=== PATIENT | female | born 1940 | race Caucasian/White ===

== ENCOUNTER 2022-12-22 15:00 | Outpatient (RCR) | payer MEDICARE, SELFPAY | END 2023-01-07 10:06 | disposition home or self-care (01) | PROVIDERS: PCP Family Medicine; Visit Provider Family Medicine | DX: M54.2 Cervicalgia (principal); Z51.89 Encounter for other specified aftercare | CPT/HCPCS: 97110; 97140; 97161 ==

== ENCOUNTER 2023-11-26 07:15 | Emergency (ER) | payer MEDICARE, SELFPAY ==
[2023-11-26 07:18] VITALS: BP 158/82; PULSE 85; RESP 18; TEMP 36.3; O2SAT 98; BMI 23.8
--- NOTE | 2023-11-26 07:33 | ED.GENADULT ---
HPI - General Adult General Chief complaint: Dental/Oral/Mouth Injury/Pain Stated complaint: Sores in mouth Time Seen by Provider: 11/26/23 07:30 History of Present Illness HPI narrative: [age] year white female presents with some sores in her mouth. She has noticed this over last 24 hours. 's long-term care and she is concerned this might be infectious. She has no difficulty swallowing they are tender at times. She doses 1 on the front of her lip as well. That is been somewhat tender. She has not had cold sores in the past of any significance or herpes zoster. She has had no immune suppressive medications. No chest pain, shortness of breath Related Data Allergies Allergy/AdvReac Type Severity Reaction Status Date / Time No Known Drug Allergies Allergy Verified 11/26/23 07:18 Review of Systems Status of ROS: Reports: 6 or more systems reviewed and unremarkable except as noted in History and below [facility] Social History Smoking Status: Former smoker Do you use any of these nicotine containing products: None Second hand tobacco smoke exposure: No How often do you have a drink containing alcohol: never How often do you have six or more drinks on one occasion: Never AUDIT-C Alcohol total score: 0 Non-prescribed substance use: denies use service: No Exam Narrative: Exam Narrative: Objective: Patient's vital signs show slightly elevated systolic pressure She is alert orient x3 no distress no difficulty swallowing or breathing. She has got an aphthous ulcer on the road for a mouth noted She also has a tiny very tiny blistering lesion on the upper lip in the middle external to the mouth. It is within the vermilion border however. Neck is supple Patient talks in normal in even unlabored sentences. Const: Vital Signs, click to edit/add: Vital Signs - 24 hr 11/26/23 07:18 Temperature 97.3 F L Pulse Rate [Pulse Oximeter] 85 Respiratory Rate 18 Blood Pressure [Le ft Upper Arm] 158/82 H Pulse Oximetry 98 Oxygen Delivery Me thod Room Air Course Vital Signs Vital signs: Initial Vital Signs Temperature 97.3 F L 11/26/23 07:18 Temperature Source Temporal Artery Scan 11/26/23 07:18 Pulse Rate 85 11/26/23 07:18 Pulse Rhythm Regular 11/26/23 07:18 Respiratory Rate 18 11/26/23 07:18 Blood Pressure 158/82 H 11/26/23 07:18 Blood Pressure Mean 107 H 11/26/23 07:18 Blood Pressure Position Sitting 11/26/23 07:18 Pulse Oximetry 98 11/26/23 07:18 Oxygen Delivery Method Room Air 11/26/23 07:18 Vital Signs Temperature 97.3 F L 11/26/23 07:18 Pulse Rate 85 11/26/23 07:18 Respiratory Rate 18 11/26/23 07:18 Blood Pressure 158/82 H 11/26/23 07:18 Pulse Oximetry 98 11/26/23 07:18 Oxygen Delivery Method Room Air 11/26/23 07:18 Temperature 97.3 F L 11/26/23 07:18 Pulse Rate 85 11/26/23 07:18 Respiratory Rate 18 11/26/23 07:18 Blood Pressure 158/82 H 11/26/23 07:18 Pulse Oximetry 98 11/26/23 07:18 Oxygen Delivery Method Room Air 11/26/23 07:18 Medical Decision Making MDM Narrative Medical decision making narrative: 83-year-old female with what appears to be an aphthous ulcer on the refer her mouth at this point would recommend symptomatic care, Tylenol, sucking on ice cube as needed. She also has an external mouth lesion that could certainly could be an early herpes simplex cold sore type lesion but it does not look like that at this time. Given her situation recommend she stay away from the long-term care unit for a day or 2 to see what transpires, if she the external lesion goes away she can return. If it worsens she could try some Blistex or other topical lubricating ointment. She will recheck as needed. Watch for any difficulty breathing or other concern although that is unlikely in this situation. Discharge Plan Discharge Clinical Impression: Aphthous ulcer Patient Disposition: Home, Self-Care Condition: Stable Additional Instructions: Tylenol as needed, may use ice cubes does suck on as needed for the mouth issue, would statin long-term care for the next day or 2 until the tiny blister on the upper lip heels or goes away, may use some Blistex this develops were worsening and like a cold sore type issue. Return as needed. Activity Level: No Restrictions Discharge Diet: Regular Follow Up/Referrals: Lisa Santos DO [Primary Care Provider] - Stand Alone Forms: [facility] Info Instructions
== END 2023-11-26 07:54 | disposition home or self-care (01) ==
LOC: ED 07:42
PROVIDERS: Emergency Provider Family Medicine; PCP Family Medicine
DX: K12.0 Recurrent oral aphthae (principal)
CPT/HCPCS: 99282; 99283

== ENCOUNTER 2023-11-27 06:24 | Emergency (ER) | payer MEDICARE, SELFPAY ==
[2023-11-27 06:28] VITALS: BP 167/84; PULSE 84; RESP 16; TEMP 36.4; O2SAT 96; BMI 23.8
--- NOTE | 2023-11-27 06:40 | ED_ITS ---
HPI - General Adult General Chief complaint: Ear/Nose/Throat Problem Stated complaint: Canker sores in sinus Time Seen by Provider: 11/27/23 06:40 History of Present Illness HPI narrative: yesterday, was told has canker sores. sores are moving from nose to mouth and right eye. Pt is worried it my be shingles. 83-year-old woman presenting to the emergency department with 2 days of an evolving rash. Seen yesterday in this emergency department and suspected to have had canker sores. Since yesterday has developed bump at the tip of her nose and some swelling along the right bridge of her nose. More painful. Does recall years ago shingles in left lower face. No fever. No drainage. No pain in her eye. Related Data Previous Rx's ?Medication ?Instructions ?Recorded Magic Mouthwash 15 ml PO QID PRN #120 mL 11/27/23 (Lidocaine/Benadryl/Maalox) 120 mL suspension valacyclovir 1 gram tablet 1,000 mg PO Q8H 7 days #21 tabs 11/27/23 Allergies Allergy/AdvReac Type Severity Reaction Status Date / Time No Known Drug Allergies Allergy Verified 11/26/23 07:18 Review of Systems Status of ROS: Reports: 6 or more systems reviewed and unremarkable except as noted in History and below PFSH [facility] Social History Smoking Status: Former smoker Do you use any of these nicotine containing products: None Second hand tobacco smoke exposure: No How often do you have a drink containing alcohol: never How often do you have six or more drinks on one occasion: Never AUDIT-C Alcohol total score: 0 Non-prescribed substance use: denies use service: No Exam Narrative: Exam Narrative: Pleasant. NAD. Getting easily. A patch of erythema over the hard and soft palate on oral pharyngeal exam on the right side only. Up to midline. There is centrally a larger whitish patch with some other whitish speckles in the area. Blister like lesion at the tip of the nose and faint erythema and swelling and then some mild erythema and subtle swelling to the right side of the nose and then there might be lesion forming at the lower far outer right eyelid area. She does not demonstrate any photophobia. No erythema/injection of the sclera. No lesions over the ears or external ear canals. Facies are symmetrical Const: Vital Signs, click to edit/add: Vital Signs - 24 hr 11/27/23 06:28 Temperature 97.6 F Pulse Rate [Right Pulse Oximeter] 84 Respiratory Rate 16 Blood Pressure [Ri ght Upper Arm] 167/84 H Pulse Oximetry 96 Oxygen Delivery Me thod Room Air Documenting provider has reviewed patient's vital signs: yes Course Vital Signs Vital signs: Initial Vital Signs Temperature 97.6 F 11/27/23 06:28 Temperature Source Temporal Artery Scan 11/27/23 06:28 Pulse Rate 84 11/27/23 06:28 Pulse Rhythm Regular 11/27/23 06:28 Respiratory Rate 16 11/27/23 06:28 Blood Pressure 167/84 H 11/27/23 06:28 Blood Pressure Mean 111 H 11/27/23 06:28 Blood Pressure Position Sitting 11/27/23 06:28 Pulse Oximetry 96 11/27/23 06:28 Oxygen Delivery Method Room Air 11/27/23 06:28 Vital Signs Temperature 97.6 F 11/27/23 06:28 Pulse Rate 84 11/27/23 06:28 Respiratory Rate 16 11/27/23 06:28 Blood Pressure 167/84 H 11/27/23 06:28 Pulse Oximetry 96 11/27/23 06:28 Oxygen Delivery Method Room Air 11/27/23 06:28 Temperature 97.6 F 11/27/23 06:28 Pulse Rate 84 11/27/23 06:28 Respiratory Rate 16 11/27/23 06:28 Blood Pressure 167/84 H 11/27/23 06:28 Pulse Oximetry 96 11/27/23 06:28 Oxygen Delivery Method Room Air 11/27/23 06:28 Medications Administered Medications: Discontinued Medications Generic Name Dose Route Start Last Admin Trade Name Freq PRN Reason Stop Dose Admin Valacyclovir HCl 1,000 mg 11/27/23 06:59 11/27/23 07:42 Valacyclovir Hcl 500 Mg Tablet PO 11/27/23 07:00 1,000 mg ONCE ONE Administration Medical Decision Making MDM Narrative Medical decision making narrative: This would appear to be herpes zoster eruption. She has not had Shingrix/shingles vaccine. She does recall history of zoster and course chicke npox when young. Involvement of the distal nose would be concerning Fischer sign. I do have concern of evolving herpes zoster ophthalmicus. Do not see evidence of [place]o [place]. Has been already sore in mouth to swallow. I think some Magic mouthwash would be helpful. Will be giving a dose of valacyclovir here in the emergency department. Will need very close monitoring and might need IV treatments. It is it is Tuesday morning. I am requesting that she be seen 1st thing Tuesday in ophthalmology clinic for repeat evaluation/further exam. Does not appear to have ocular involvement today. See patient discharge plan for further discussion Medical Records Medical records reviewed: Yes I reviewed the patient's medical records Discharge Plan Discharge Clinical Impression: Herpes zoster Patient Disposition: Home w/ Parent or Adult Condition: Stable Additional Instructions: You might try cold moist compresses for some symptom relief. Can keep a container of water with wash cloths within in the fridge. Will be prescribing some prednisone as a steroid from [facility]. Can take up to 1000 mg of acetaminophen per dose. This could be combined with up to 600 mg of ibuprofen per dose. Naproxen would be an alternative to ibuprofen. We have discussed medications like [place] as well but per your preference, will defer at this time. Will also send in prescription for Magic mouthwash along with the antiviral valacyclovir. I think it is important for you to be seen by Ophthalmology tomorrow morning. Please contact them 1st thing. I am concerned that you may be developing herpes zoster ophthalmicus. Prescriptions: New Magic Mouthwash (Lidocaine/Benadryl/Maalox) 120 mL suspension 15 ml PO QID PRNQty: 120 1RF Rx Instructions: Lidocaine Viscous 2 % mucosal solution 40 mL; Maalox 200 mg-200 mg-20 mg/5 mL oral suspension 40 mL; Benadryl 12.5 mg/5 mL oral elixir 40 mL; Per 120 mL SWISH AND SPIT. MAY COMPOUND IF FIRST PRODUCT IS NOT AVAILABLE. valacyclovir 1 gram tablet 1,000 mg PO Q8H 7 Days Qty: 21 0RF Follow Up/Referrals: Lisa Santos DO [Primary Care Provider] - Stand Alone [facility]: [facility] Inst[facility]
[2023-11-27] MEDS: VALACYCLOVIR HCL 500 MG TABLET 1000 MG PO (07:42)
== END 2023-11-27 07:47 | disposition home or self-care (01) ==
PROVIDERS: Emergency Provider Family Medicine; PCP Family Medicine
DX: B02.9 Zoster without complications (principal)
CPT/HCPCS: 99283; 99284; A9270

== ENCOUNTER 2025-02-10 13:54 | Emergency (ER) | payer MEDICARE, SELFPAY ==
[2025-02-10 14:26] VITALS: BP 156/83; PULSE 82; RESP 20; TEMP 36.4; O2SAT 96
--- NOTE | 2025-02-10 18:33 | ED.GENADULT ---
HPI - General Adult General Time Seen by Provider: 18:33 Date Seen: 02/10/25 Chief complaint: Extremity Pain/Injury, Lower Stated complaint: left hip pain Time Seen by Provider: 02/10/25 18:29 Source: patient, family and RN notes reviewed Mode of arrival: ambulatory Limitations: no limitations History of Present Illness HPI narrative: This 84-year-old female is presenting to the ER with complaint of left hip pain. There has been no trauma. She states she had a cortisone injection for hip pain 2 weeks ago with the pain is not improved. She notes that she has bad arthritis in her left hip, had a steroid injection it really has not helped. Over a year ago her symptoms started more as low back pain. The Tylenol has not been cutting it for her. She is not sleeping. She feels pain in the hip area with standing up. She has also noted some leg numbness tingling feeling now. She states it is a little better from coming back from the lobby to the bed in the hallway. Of note, patient did have a significant weight due to the volume in the acuity and no bed availability in the ED. she does states that sitting on the more questioned bed has alleviated some of that numbness tingling feeling. She points to the posterolateral buttock and hip area where she is feeling the pain. The pain will go down the back of her leg, does not think it goes below the knee. There is no trauma, no fevers or chills. She baseline has some urinary incontinence but has had 7 pregnancies, is unchanged. She does not feel she has had any loss of bowel or bladder control over baseline. She is noted to have osteoporosis, hypertension per her report. Her medications are reviewed. Related Data Home Medications ?Medication ?Instructions ?Recorded ?Confirmed alendronate 70 mg tablet 70 mg PO 12/16/23 12/16/23 gabapentin 100 mg capsule 100 mg PO 3XD 12/16/23 02/10/25 lisinopril 40 mg tablet 40 mg PO DAILY 12/16/23 02/10/25 diltiazem HCl 120 mg 120 mg PO DAILY 02/10/25 02/10/25 capsule,extended release 24 hr gemfibrozil 600 mg tablet 600 mg PO BID 02/10/25 02/10/25 ibandronate 150 mg tablet 150 mg PO 02/10/25 Allergies Allergy/AdvReac Type Severity Reaction Status Date / Time No Known Drug Allergies Allergy Verified 02/10/25 14:23 Review of Systems Status of ROS: Reports: 6 or more systems reviewed and unremarkable except as noted in History and below [facility] Medical History (Updated 02/10/25 @ 20:23 by Carisa Alcaraz MD) Hypertension ?I10 - Essential (primary) hypertension (ICD-10) Social History Smoking Status: Former smoker Do you use any of these nicotine containing products: None Second hand tobacco smoke exposure: No How often do you have a drink containing alcohol: never How often do you have six or more drinks on one occasion: Never AUDIT-C Alcohol total score: 0 Non-prescribed substance use: denies use service: No Exam Const: Vital Signs, click to edit/add: Vital Signs - 24 hr 02/10/25 14:26 Temperature 97.5 F L Pulse Rate [Pulse Oximeter] 82 Respiratory Rate 20 Blood Pressure [Ri ght Upper Arm] 156/83 H Pulse Oximetry 96 Oxygen Delivery Me thod Room Air This 84-year-old female is alert, interactive, no apparent distress. Sitting up in the bed in the bean in the ER. Lungs are clear, good air entry, no wheezing or crackles, no tachypnea or accessory muscle use. CV regular rate and rhythm, no significant murmur, normal S1-S2. She has some lower midline tenderness along the sacral lumbar junction. She has sciatic notch tenderness on palpation of the left buttock area. She is not tender over either trochanteric area when I palpate. When I do some internal external rotation isolating hip joint, this does give her discomfort on the left. She also has a positive straight leg raise on the left. Sensation by light touch is normal right now. Strength is 5/5 and symmetric. Documenting provider has reviewed patient's vital signs: yes Course Course ED Course: Have reviewed with patient and her family member that she is here with that it can be sometimes very difficult to differentiate between hip pathology verses low back pain. There can be overlap with these. She certainly sounds to have some arthritis in her hip but the fact that she has some ongoing symptoms that were not improved with cortisone injection into the hip and there is numbness tingling makes me think that she also probably has some lumbar degenerative disease with a possible radiculopathy. Pain management is an issue here. She states she was told not to take ibuprofen because of her blood pressure. Reviewed with her and her family member that based on age alone, there certainly can be renal dysfunction and NSAIDs typically are contraindicated as people age. Her Tylenol is not sufficient. She does not think she has taken narcotics since she had her babies. She does not have a history of seizures. We will give her a dose of tramadol 50 mg here and see how she tolerates it. We are going to proceed with some lumbar spine x-rays. Her exam and vitals do not have any concern for any evidence of infection at this time. We will not check blood work at this point but will consider if she should have a fever here or see something clinically that would be worrisome for this. Reevaluation(s) Time of Reevaluation #1: 20:12 Reevaluation #1: Have reviewed x-ray reports with patient. She does have L4 on L5 spondylolisthesis which is mild. I do wonder if she might have an L4-L5 radiculopathy based on her symptoms. She did tolerate the tramadol, feels like pain is better seated. We are going to get her up and walk, it is with walking where she feels the pain the most. This does make me think there could be a component intra-articular hip pathology as well. We will make sure that she is not to lightheaded or symptomatic from the tramadol. We talked about a short course of prednisone just 20 mg daily and sending her home with some tramadol. Her children are planning to take turns staying with her so she has someone at home. Will give her Tramadol and prednisone from [facility]. Vital Signs Vital signs: Initial Vital Signs Temperature 97.5 F L 02/10/25 14: Temperature Source Temporal Artery Scan 02/10/25 14: Pulse Rate 82 02/10/25 14: Respiratory Rate 20 02/10/25 14:26 Blood Pressure 156/83 H 02/10/25 14: Blood Pressure Mean 107 H 02/10/25 14:26 Pulse Oximetry 96 02/10/25 14:26 Oxygen Delivery Method Room Air 02/10/25 14:26 Vital Signs Temperature 97.5 F L 02/10/25 14:26 Pulse Rate 82 02/10/25 14:26 Respiratory Rate 20 02/10/25 14:26 Blood Pressure 156/83 H 02/10/25 14:26 Pulse Oximetry 96 02/10/25 14:26 Oxygen Delivery Method Room Air 02/10/25 14:26 Temperature 97.5 F L 02/10/25 14:26 Pulse Rate 82 02/10/25 14:26 Respiratory Rate 20 02/10/25 14:26 Blood Pressure 156/83 H 02/10/25 14:26 Pulse Oximetry 96 02/10/25 14:26 Oxygen Delivery Method Room Air 02/10/25 14:26 Medications Administered Medications: Generic Name Dose Route Start Last Admin Trade Name Freq PRN Reason Stop Dose Admin Tramadol HCl 50 mg 02/10/25 19:03 02/10/25 19:44 Tramadol Hcl 50 Mg Tablet PO 02/10/25 19:04 50 mg ONCE ONE Administration Medical Decision Making Imaging Data XR lumbar spine: Attestation: I have reviewed the pertinent imaging results. Radiologist's impression: Patient: KISHAN MICHELE Facility:?[facility] Patient ID:?[id number] Site Patient ID:?[id number]. 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 Mild anterolisthesis of L4 on L5. Mild degenerative change of the lumbar spine atherosclerotic vascular calcification. No acute fracture seen. Dictated by Heather Lee MD @ 02/10/2025 7:27:38 PM (Electronic Signature) Discharge Plan Discharge Clinical Impression: Low back pain Qualifiers: Chronicity: unspecified Back pain laterality: left Sciatica presence: with sciatica Sciatica laterality: sciatica of left side Qualified Code(s): M54.42 - Lumbago with sciatica, left side Osteoarthritis of left hip Qualifiers: Osteoarthritis type: unspecified Qualified Code(s): M16.12 - Unilateral primary osteoarthritis, left hip Patient Disposition: Home, Self-Care Condition: Stable Instructions: Osteoarthritis (ED), Lumbar Radiculopathy (ED) Additional Instructions: Need to contact your primary provider in clinic and get a follow-up there as soon as possible, preferably within 1 week. Try the prednisone 20 mg daily for 5 days, take with food. Would recommend taking tomorrow morning to start. Can use tramadol 50 mg 1 every 6 hours as needed for more severe pain. Stay on your baseline Tylenol, can maximize Tylenol to 3 g per day, follow bottle dosing instructions. It is unclear what part of your symptoms may be your hip but I certainly suspect that you might have degenerative changes causing some of this pain coming from the spine. You may need further imaging and specialty consultation to help figure this out, your primary care provider can assist in this. Activity Level: Activity as Tolerated Prescriptions: No Action gabapentin 100 mg capsule 100 mg PO 3XD alendronate 70 mg tablet 70 mg PO lisinopril 40 mg tablet 40 mg PO DAILY gemfibrozil 600 mg tablet 600 mg PO BID diltiazem HCl 120 mg capsule,extended release 24hr 120 mg PO DAILY ibandronate 150 mg tablet 150 mg PO Follow Up/Referrals: Lisa Santos DO [Primary Care Provider, Family Practice] Stand Alone Forms: [employer] Info Instructions
--- NOTE | 2025-02-10 19:02 | CRLHL7_ITS ---
For Patients: As a result of the Century Cures Act, medical imaging exams and procedure reports are released immediately into your electronic medical record. You may view this report before your referring provider. If you have questions, please contact your health care provider. 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 Mild anterolisthesis of L4 on L5. Mild degenerative change of the lumbar spine atherosclerotic vascular calcification. No acute fracture seen. Dictated by Heather Lee MD @ 02/10/2025 7:27:38 PM (Electronically Signed)
--- OUTSIDE RECORDS SUMMARY | 2025-02-10 19:43 | XMS_ITS | Clinical Summary ---
Author Organization [facility] Address [address] [place] [id number] Care Team Providers Care System Specialist Name Role Phone Lisa Santos Primary Care Provider Emir San Unavailable [phone] Allergies Active AllergyReactionsCriticalityNoted DateCommentsHydrochlorothiazide Hyponatremia,Other - Describe In Comment Field04/25/2021 elevated creatinine level Medications MedicationSigDispense QuantityRefillsLast FilledStart DateEnd DateStatus MULTIVITAMIN TAB ctive ASPIRIN 81 MG TAB, DELAYED RELEASE Indications:Unspecified essential hypertension,Mixed wcaxkolyahasqo788/14/2007 Active calcium carbonate-cholecalciferol, 600mg-200 units, (CALCIUM + D) 600 mg(1,500mg) -200 unit tablet Indications:Routine general medical examination at a health care facilityTake 1 tablet by mouth once daily with a meal.ctive omega-3 fatty acids-vitamin E (FISH OIL) 1,000 mg cap Indications:Unspecified essential hypertension,Mixed hyperlipidemiaTake 1 capsule by mouth once daily.ctive Graduated Compression Stockings Indications:Venous insufficiencyFor personal use. Length: calf Strength: 8-16 1 Packet ctive medication order composer Indications:HTN (hypertension)pneqtv766ctive gabapentin 100 mg capsule Indications:Post herpetic neuralgiaTake 2 Capsules (200 mg) by mouth at bedtime. 180 Capsule 3045Active gemfibroziL 600 mg tablet Indications:Mixed hyperlipidemiaTake 1 Tablet (600 mg) by mouth two times daily before meals. 180 Tablet 5Active lisinopriL 40 mg tablet Indications:Essential hypertensionTake 1 Tablet (40 mg) by mouth once daily. 90 Tablet 5Active ibandronate (Boniva) 150 mg tablet Indications:Age-related osteoporosis without current pathological fractureTake 1 Tablet (150 mg) by mouth once a month. Take on empty stomach with full glass of water, do not lie down for 1 hr. 3 Tablet 5Active medication order composer Indications:Generalized osteoarthritisTumeric 500mg capsule (2 capsules daily) 5Active Diltiazem HCl 300 mg extended release 24 hr tablet Indications:Essential hypertensionTake 1 Tablet (300 mg) by mouth once daily. 90 Tablet 5ActiveHospital, Clinic, or Other Facility Administered Medication Ordered DoseRouteFrequencyStart DateEnd DateStatus betamethasone acet,sod phos 9 mg injection (CELESTONE SOLUSPAN) Indications:Primary osteoarthritis of left hip9 mgIArticONE TIME01/30/2025 01/30/2025Ended Active Problems ProblemNoted DateDiagnosed DateAge related ilukhjbdyovq42/23/2024Essential vshoredhxjop34/23/2023Facet arthritis, degenerative, cervical spine04/10/2018DDD (degenerative disc disease), /11/2019 Overview (04/10/2018): C5-6 Mixed wyygeurzrfipfe96/25/4214Uwhragetlq35/25/2008HTN (hypertension)01/23/2008 Overview (05/13/2009): Updated by system to replace inactive record Encounters DateTypeDepartmentCare HtfgJjawugranzn94/03/2025 4:00 PM CSTOffice Visit [email or web address] [address] [place] [address] Nicholas Live MD Procedure (Ultrasound guided injection left hip)01/30/20257949Iegnjb43/01/2025 Telephone [facility] [[email or web address]] [address] [place] [address] Nicholas Live MD Questions ([facility] Cortisone Appointment )01/09/2025Orders Only [facility] [[email or web address]] [address] [place] [address] Lisa Santos DO <No scans attached>01/09/2025Telephone [address] [address] Nicholas Live MD Referral ([facility] for hip); Error-please rzytpjwgz86/12/2025Telephone [address] [address] Lisa Santos DO Questions (returning a call )01/08/2025Telephone [address] [address] Lisa Santos DO Injection (Medication) (cortisone shot)12/14/2024 11:15 AM CDTAncillary Procedure [address] [address] 12/14/2024 10:40 AM CDTOffice Visit [address] [address] Lisa Santos DO Blood Pressure (diltiazem- side effects- very stiff in the mornings and fatigue); Hip Pain/problem (left side hip pain started in the back now in hip, pain is worse/)12/14/20247992Vjbsrg65/20/2025Telephone [address] [address] Lisa Santos DO Blood Pressure (home r)from Last 3 Months Immunizations ImmunizationAdministration DatesNext DueInfluenza, High-dose Inactivated 11/19/2024,11/14/2023,11/07/2019,11/20/2018,12/02/2017,11/30/2016,12/03/2015, 12/04/2014Influenza, High-dose Quadrivalent Cpmftbotxpi25/02/2023,11/11/2021, 11/21/2020,11/07/2019Influenza, IIV3 (Age >=3 years)12/12/2013,12/08/2012, 11/08/2011,12/05/2010,11/11/2009,11/18/2008,11/18/2008,12/13/2007Pneumococcal Poly,23-Valent (Pneumovax)02/29/2004Pneumococcal conj 13-Valent (Prevnar 13) 01/20/2015Td (Age >=7 Years)02/28/2001Tdap06/07/2024,02/05/2011 Family History Medical HistoryRelationNameCommentsCancerBrotherlung cancer, smokerHeart Disease Fatherischemic, age 83, age 60 with first MIHypertensionFatherHypertension MotherOtherMothermitral valve prolapseStrokeMotherage 45Cancer-colonNeg.Cancer Sondied age 4 12, retinoblastomaCancer-breastNo Family HistoryCancer-ovarianNo Family HistoryRelationNameStatusCommentsBrotherFatherMotherNeg.Son Social History Tobacco UseTypesPacks/DayYears UsedDateSmoking Tobacco: JsrlksAgjaumupht538 02/29/1964 - 02/29/1984Smokeless Tobacco: Never Tobacco Cessation:Counseling Given: Not Answered Alcohol UseStandard Drinks/WeekCommentsNot Currently0 (1 standard drink = 0.6 oz pure alcohol)rarePHQ-2AnswerDate RecordedPHQ-2 TOTAL [id number] ConnectionsAnswerDate RecordedDo you often feel lonely or isolated from those around you?Financial Resource StrainAnswerDate RecordedDifficulty of Paying Living Iemtebby390ifficulty of Paying Living ExpensesNot on file 06/08/2023Food InsecurityAnswerDate RecordedDo you worry your food will run out before you are able to buy more?Transportation NeedsAnswerDate RecordedDoes lack of transportation keep you from medical appointments?1 06/08/2024Does lack of transportation keep you from work, meetings or getting things that you need?Housing StabilityAnswerDate RecordedWhat is your housing situation today?UtilitiesAnswerDate RecordedDo you have trouble paying for utilities (for example, heat, electricity, water, phone)?1 06/08/2024CommentsNoSex and Gender InformationValueDate RecordedSex Assigned at BirthNot on fileLegal TjeIsxckw99/14/2013 6:37 AM CSTGender Identity Not on fileSexual OrientationNot on file Obstetrics History GravidaParaTermPretermABIABSABEctopicMultipleLivingLive Sbeqyo042DyifUgtdceiMW Total LaborLabor/2nd/8hmVhyvknOmzCjxcIzvzEFIOpmV1V9QssiRazeLrvwDmjgVtyxXizkErpk ParaPara Last Filed Vital Signs Vital SignReadingTime TakenCommentsBlood Nrwuvvyn363/7401/30/2025 3:51 PM OIL FILTERS INSPECTOR Hjenl488101/30/2025 3:51 PM MGCSxmgvoxsklq81.3 ??C (97.4 ??F)01/30/2025 3:51 PM CSTRespiratory Ujwc555006/28/2012 2:28 PM CDTOxygen Ywzioueatl63%01/30/2025 3:51 PM CSTInhaled Oxygen Concentration--Puiipe86.2 kg (128 lb 3.2 oz)12/14/2024 10:35 AM PIDWetvqt936.5 cm (5' 2.4)06/06/2024 11:05 AM CDTBody Mass Index23.15 06/06/2024 11:05 AM CDT Plan of Treatment Health MaintenanceDue DateLast DoneCommentsZoster (shingles) series for age 50+ (1 of 2)1988RSV vaccine for adults or (1 - 1-dose 75+ series) 2013COVID-19 vaccine series ( season), 01/05/2022, 07/08/2021, Additional history existsBMI (ht and wt on same day) for age 18+, 05/16/2023, 03/22/2022, Additional history exists Depression screening for age 12+/10/2024, 05/17/2023, 05/16/2023, Additional history existsMedicare Wellness for age 65+/10/2024, 05/16/2023, 03/22/2022, Additional history existsTetanus aezdxsm6006/07/2034 06/07/2024, 02/05/2011, 02/28/2001Pneumococcal series for age 50+Completed 01/20/2015, 02/29/2004DEXA/DXA scan for age 65+Geohoiqla81/19/2024, 01/29/2014, 01/07/2012, Additional history existsInfluenza QiikjcaJarofdmbm10/22/2025, 11/14/2023, 11/07/2019, Additional history existsHepatitis B series for 19+Aged OutNo longer eligible based on patient's age to complete this topic Goals GoalPatient Goal TypeAssociated ProblemsRecent ProgressPatient-Stated?Author BLOOD PRESSURE - MAINTAINS BP less than 140/90 Blood PressureNoDeLisa jaeger, DO Procedures Procedure NamePriorityDate/TimeAssociated DiagnosisCommentsXR HIP 1 VIEW W PELVIS YIMJZxqstkg05/17/2025 11:15 AM CDT Left hip pain XR DXA BONE DENSITY 2 SITES XKPESTxtjjiu45/19/2024 1:12 PM CDT Post-menopausal from Last 3 Months or Most Recently Relevant to Health Maintenance Results * XR HIP 1 VIEW W PELVIS LEFT (12/14/2024 11:15 AM CDT)Anatomical Region LateralityModalityHIPS, HIPL, PelvisComputed RadiographySpecimen (Source) Anatomical Location / LateralityCollection Method / VolumeCollection Time Received Time12/17/2024 3:24 PM CDT Narrative 12/17/2024 3:24 PM CDT For Patients: As a result of the Century Cures Act, medical imaging exams and procedure reports are released immediately into your electronic medical record. You may view this report before your referring provider. If you have questions, please contact your health care provider. Indication: Hip pain Technique: Pelvis and left hip 2 views Comparison: None Findings: Narrowing and spurring at both hips. No fracture. Osteopenia. No intrinsic lesion. The sacrum is partially obscured by overlying bowel. Impression: Mild degenerative joint disease left hip. Dictated by Wes Grover MD @ 12/17/2024 3:24:26 PM (Electronically Signed) Procedure Note Wes Grover MD - 12/17/2024 For Patients: As a result of the Cures Act, medical imagingexams and procedure reports are released immediately into your electronicmedical record. You may view this report before your referring provider.If you have questions, please contact your health care provider. Indication: Hip pain Technique: Pelvis and left hip 2 views Comparison: None Findings: Narrowing and spurring at both hips. No fracture. Osteopenia. No intrinsic lesion. The sacrum is partially obscured by overlying bowel. Impression: Mild degenerative joint disease left hip. Dictated by Wes Grover MD @ 12/17/2024 3:24:26 PM (Electronically Signed) Authorizing ProviderResult TypeResult StatusTamara Arlin Detert DOGENERAL IMAGING Final Result * (ABNORMAL) XR DXA BONE DENSITY 2 SITES AXIAL (05/17/2023 1:12 PM CDT) Anatomical RegionLateralityModalitySpine, HIPS, HIPL, HIPROtherSpecimen (Source)Anatomical Location / LateralityCollection Method / VolumeCollection TimeReceived Time Impressions 05/20/2023 4:43 PM CDT Osteoporosis. RECOMMENDATIONS: The National Osteoporosis Foundation recommends pharmacologic treatment for patients with T-scores of -2.5 or less, patients with prior history of fragility fractures, or patients with 10-year probability of greater than 3% at hips or greater than 20% of suffering major osteoporotic fractures. Recommend continued optimization of calcium and vitamin D intake through dietary means and/or supplementation and regular exercise. Consider pharmacologic therapy for osteoporosis. Follow-up bone density reading in 2 years if therapy initiated to assess therapeutic efficacy. Sandie Kirby PA-C [facility] 05/20/2023 Narrative 05/20/2023 4:43 PM CDT For Patients: Results are automatically released to your [facility]) account once available, in compliance with federal regulations. This means that you may see your results before your provider has had a chance to review them. Please allow 2-3 business days for your provider to comment on the results. XR DXA Bone Mineral Density (BMD) EXAM LOCATION: [facility] [address] [facility] [address] PATIENT NAME: Ana Paula Spence DATE OF : 1940 EXAM DATE: 05/17/2023 REQUESTING PROVIDER: Lisa Santos DO GENDER AT : female HEIGHT: 5' 2.72 (05/16/2023) WEIGHT: ??130 lb 12.8 oz (05/16/2023) MENOPAUSAL STATUS: Postmenopausal RACE/ETHNICITY: White RISK FACTORS: Family History of Osteoporosis, Smoking (prior), and White Race CURRENT MEDICATION FOR BONE LOSS: NONE INDICATION: Post-Menopause COMPARISON DATE(S): 2013 DXA scans are compared to prior studies for a patient only when the two (or more) studies were performed on the same scanner. It is not possible to compare data generated on one scanner to data from another because there are not standards in DXA equipment. This applies even if the two scanners are made by the same rn ortho. PROCEDURE: Dual-energy x-ray absorptiometry performed with routine technique. Reporting is completed in the form of a T-score. The T-score represents the standard deviation from peak bone mass based on young healthy adult. A Z-score is used for diagnosis in premenopausal women, and for men under the age of 50. FINDINGS: RESULT LUMBAR SPINE L1 - L4 BMD: 0.979 g/cm2 T-Score: - 1.7 Z-Score: + 0.4 Change from prior in 2013: ??Decrease 0.8%. RESULTS FEMUR Left femoral neck BMD: 0.665 g/cm2 T-Score: - 2.7 Z-Score: - 0.2 Change from prior in 2014: ??Decrease 15.0%. Right femoral neck BMD: 0.679 g/cm2 T-Score: - 2.6 Z-Score: - 0.1 Change from prior in 2014: ??Decrease 13.7%. Left hip BMD: 0.653 g/cm2 T-Score: - 2.8 Z-Score: - 0.4 Change from prior in 2014: ??Decrease 19.9%. Right hip BMD: 0.687 g/cm2 T-Score: - 2.5 Z-Score: - 0.1 Change from prior in 2013: ??Decrease 10.8%. WHO criteria: Normal: T-score at or above -1 SD Osteopenia: T-score between -1.1 and -2.4 SD Osteoporosis: T-score at or below -2.5 SD Authorizing ProviderResult TypeResult StatusTamara Arlin Santos DODEXAFinal Result from Last 3 Months or Most Recently Relevant to Health Maintenance Insurance Advance Directives TypeDate RecordedPatient RepresentativeExplanationHealthcare Directive10/31/2012 8:05 [facility]AMW[facility], 10/26[facility]2012 Care Teams Team MemberRelationshipSpecialtyStart DateEnd Date Lisa Santos DO [address] [place] [address] PCP - GeneralFamily Mzexqkwm01/24/12 Emir San [address] [place] [id number] Ooefxdgqtuj02/6/13
[2025-02-10] MEDS: TRAMADOL HCL 50 MG TABLET PO (19:44)
[2025-02-10 20:15] VITALS: BP 173/91; PULSE 87; RESP 18; O2SAT 97
== END 2025-02-10 21:22 | disposition home or self-care (01) ==
PROVIDERS: Emergency Provider Family Medicine; PCP Family Medicine
DX: M54.50 Low back pain, unspecified (principal); M16.12 Unilateral primary osteoarthritis, left hip; R20.0 Anesthesia of skin; R20.2 Paresthesia of skin; M43.16 Spondylolisthesis, lumbar region; Z79.899 Other long term (current) drug therapy
CPT/HCPCS: 72100; 99283; 99284; A9270